=== PATIENT | female | born 1945 | race American Indian/Alaskan Native ===

== ENCOUNTER 2017-12-06 13:12 | Outpatient (CLI) | payer MEDICAID, MEDICARE ==
--- NOTE | 2017-12-06 14:23 | Mammography Report ---
Bilateral mammogram: No previous studies of the liver. CAD is utilized. Findings: Predominance of adipose tissue bilaterally. Focal architectural distortion outer mid left breast. No microcalcification. No distinct mass. Benign axillary nodes. Impression: Focal architectural distortion left breast. Comparison with previous studies is recommended. If previous studies are not available tomosynethesis or spot mag and if necessary sonographic examination advised. BI-RADS CATEGORY: 0 = Needs additional imaging evaluation ACR BI-RADS MAMMOGRAPHIC CODES: 0 = Needs additional imaging evaluation; 1 = Negative; 2 = Benign; 3 = Probably benign; 4 = Suspicious; 5 = Malignant; 6 = Known biopsy-proven malignancy COMMENT: 1. Dense breast tissue, i.e., adenosis, fibrocystic changes, etc., may obscure an underlying neoplasm. 2. Approximately 10% of cancers are not detected with mammography. 3. A negative mammography report should not delay biopsy if a clinically suspicious mass is present. COMMENT: Patient follow-up letters are generated in [employer].
--- NOTE | 2017-12-06 14:25 | Mammography Report ---
BONE DENSITY STUDY: DEFINITIONS: BMD = Bone Mineral Density T-score = BMD related to mean peak bone mass of young adult (mean expressed in Standard Deviation) Z-score = Age matched BMD expressed in SD World Health Organization (WHO) Diagnostic Criteria Normal T-score > -1 SD Osteopenia T-score between -1 and -2.4 SD Osteoporosis T-score -2.5 SD or below FINDINGS: The weighted average BMD of lumbar spine L1-L4 is 1.135 with a T-score of 0.8. The weighted average BMD of hip is 0.823 with a T-score of -1.0. IMPRESSION: The patient's T-score is diagnostic for osteopenia and average relative risk for fracture. NOTE: BMD is not the only risk factor for fracture; also consider factors such as the patient's age, risk of falling, previous osteoporotic fracture, family history of osteoporotic fractures, current smoker, and low body weight. Rich's triangle is a region of interest in femur, predominantly of trabecular bone. It is not a true anatomic site, and ISCD does not recommend its use clinically.
--- NOTE | 2017-12-06 15:26 | XRay Report ---
Lumbar spine 3 views: History: Lumbago with sciatica. Findings: Rotoscoliosis of lumbar spine with convexity to left. Normal height of vertebral bodies. Decrease in height of intervertebral disc spaces with sclerotic articular surfaces with peripheral osteophytes suggesting degenerative changes. No fracture. No soft tissue calcification. Impression: Moderate to severe degenerative changes lumbar spine.
== END 2017-12-06 13:13 | disposition home or self-care (01) ==
LOC: MAMMO 13:12
PROVIDERS: ATTEND Internal Medicine
DX: Z12.31 Encounter for screening mammogram for malignant neoplasm of breast (principal); M85.88 Other specified disorders of bone density and structure, other site; M41.86 Other forms of scoliosis, lumbar region; M47.896 Other spondylosis, lumbar region
CPT/HCPCS: 72110; 77067; 77080

== ENCOUNTER 2017-12-19 12:45 | Outpatient (CLI) | payer MEDICARE ==
--- NOTE | 2017-12-19 13:46 | Mammography Report ---
LEFT DIGITAL DIAGNOSTIC MAMMOGRAM : 12/19/17 12:45:00 CLINICAL: Recalled for focal architectural distortion. COMPARISON:12/06/17 screening FINDINGS: Additional left mammographic views were performed and are negative. IMPRESSION: Negative Mammogram. BI-RADS CATEGORY: 1 -- Negative RECOMMENDATION: Routine mammographic screening in one year. ACR BI-RADS MAMMOGRAPHIC CODES: 0 = Needs additional imaging evaluation; 1 = Negative; 2 = Benign; 3 = Probably benign; 4 = Suspicious; 5 = Malignant; 6 = Known biopsy-proven malignancy COMMENT: 1. Dense breast tissue, i.e., adenosis, fibrocystic changes, etc., may obscure an underlying neoplasm. 2. Approximately 10% of cancers are not detected with mammography. 3. A negative mammography report should not delay biopsy if a clinically suspicious mass is present. COMMENT: Patient follow-up letters are generated via our [employer] application.
== END 2017-12-19 12:46 | disposition home or self-care (01) ==
LOC: MAMMO 12:45
PROVIDERS: ATTEND Internal Medicine
DX: R92.8 Other abnormal and inconclusive findings on diagnostic imaging of breast (principal)

== ENCOUNTER 2018-12-27 10:59 | Outpatient (CLI) | payer MEDICARE ==
--- NOTE | 2018-12-27 11:26 | Mammography Report ---
BILATERAL MAMMOGRAM: FINDINGS: The breast tissue is heterogeneously dense, which could obscure detection of small masses (approximately 50%-75% glandular). No mass, distortion, suspicious calcification, or skin change is seen. There are no changes when compared to prior exams in 2018. CAD was utilized. IMPRESSION: Negative mammogram. There is no mammographic evidence of malignancy. RECOMMENDATION: Follow-up per ACS guidelines. BI-RADS CATEGORY: 1 = Negative ACR BI-RADS MAMMOGRAPHIC CODES: 0 = Needs additional imaging evaluation; 1 = Negative; 2 = Benign; 3 = Probably benign; 4 = Suspicious; 5 = Malignant; 6 = Known biopsy-proven malignancy COMMENT: 1. Dense breast tissue, i.e., adenosis, fibrocystic changes, etc., may obscure an underlying neoplasm. 2. Approximately 10% of cancers are not detected with mammography. 3. A negative mammography report should not delay biopsy if a clinically suspicious mass is present. COMMENT: Patient follow-up letters are generated in [employer].
== END 2018-12-27 11:00 | disposition home or self-care (01) ==
LOC: MAMMO 10:59
PROVIDERS: ATTEND Internal Medicine
DX: Z12.31 Encounter for screening mammogram for malignant neoplasm of breast (principal); I10 Essential (primary) hypertension; Z90.710 Acquired absence of both cervix and uterus
CPT/HCPCS: 77067

== ENCOUNTER 2018-12-30 12:47 | Emergency (ER) | payer MEDICARE ==
--- NOTE | 2018-12-30 12:59 | Emergency Department Report ---
Blank Doc - Documentation Documentation: 73 y o left heel pain x 1 week PMH of HTM on medications amlodipine and triamtene Just took her BP medicine in triage hasnt taken it in 3 days [facility] jessicaal
[2018-12-30 13:03] VITALS: BP 191/95
--- NOTE | 2018-12-30 13:58 | XRay Report ---
PROCEDURE: XR FOOT 3+V LT TECHNIQUE: AP, oblique and lateral views of the left foot were performed. HISTORY: pain COMPARISONS: None. FINDINGS: No fracture. No dislocation. Normal mineralization. No soft tissue swelling. Mild degenerative changes of the first MTP joint are seen. 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 This document is electronically signed by Kiarra Sandoval., December 30 2018 02:56:04 PM ET
--- NOTE | 2018-12-30 14:05 | Emergency Department Report ---
ED Lower Extremity HPI - General Chief Complaint: Extremity Injury, Lower Stated Complaint: HEEL AND ANKLE PAIN Time Seen by Provider: 12/30/18 12:57 Source: patient Mode of arrival: Ambulatory Limitations: No Limitations - History of Present Illness Initial Comments: This is a 73-year-old female nontoxic, well nourished in appearance, no acute signs of distress presents to the ED with c/o of posterior left foot pain 1 day. Patient denies any trauma. Patient denies any numbness, tingling, fever, chills, nausea, vomiting, chest pain, shortness of breath, headache, stiff neck. Patient denies any joint swelling or joint redness. Patient denies decreased range of motion. Patient stated has decreased gait due to pain. Patient denies any allergies or significant past medical history. MD Complaint: foot injury -: days(s) (1) Injury: Foot: Left Severity: mild Severity scale (0 -10): 8 Improves With: immobilization Worsens With: weight bearing, movement, palpation Associated Symptoms: unable to bear weight, able to partially bear weight. de nies: snap/pop sensation, swelling, numbness, tingling, ambulatory - Related Data Previous Rx's Medication Instructions Recorded Last Taken Type Acetaminophen/Codeine [Tylenol #3] 1 tab PO TID PRN #9 tab 03/13/15 Unknown Rx methOCARBAMOL [Robaxin TAB] 500 mg PO BID #14 tab 03/13/15 Unknown Rx Acetaminophen/Codeine [Tylenol 1 tab PO Q6H PRN #12 tab 12/30/18 Unknown Rx /Codeine # 3 tab] Prednisone [predniSONE 10 mg 10 mg PO .TAPER #1 tab.ds.pk 12/30/18 Unknown Rx (6-Day Pack, 21 Tabs)] Allergies Allergy/AdvReac Type Severity Reaction Status Date / Time No Known Allergies Allergy Verified 12/30/18 12:48 ED Review of Systems ROS: Stated complaint: HEEL AND ANKLE PAIN Other details as noted in HPI Constitutional: denies: chills, fever Eyes: denies: eye pain, eye discharge, vision change ENT: denies: ear pain, throat pain Respiratory: denies: cough, shortness of breath, wheezing Cardiovascular: denies: chest pain, palpitations Endocrine: no symptoms reported Gastrointestinal: denies: abdominal pain, nausea, diarrhea Genitourinary: denies: urgency, dysuria, discharge Musculoskeletal: arthralgia. denies: back pain, joint swelling Skin: denies: rash, lesions Neurological: denies: headache, weakness, paresthesias Psychiatric: denies: anxiety, depression Hematological/Lymphatic: denies: easy bleeding, easy bruising ED Past Medical Hx - Past Medical History Hx Hypertension: Yes - Surgical History Additional Surgical History: c-sect, hysterectomy - Social History Smoking Status: Former Smoker Substance Use Type: Prescribed - Medications Home Medications: Home Medications Medication Instructions Recorded Confirmed Last Taken Type Acetaminophen/Codeine [Tylenol #3] 1 tab PO TID PRN #9 tab 03/13/15 Unknown Rx methOCARBAMOL [Robaxin TAB] 500 mg PO BID #14 tab 03/13/15 Unknown Rx Acetaminophen/Codeine [Tylenol 1 tab PO Q6H PRN #12 tab 12/30/18 Unknown Rx /Codeine # 3 tab] Prednisone [predniSONE 10 mg 10 mg PO .TAPER #1 tab.ds.pk 12/30/18 Unknown Rx (6-Day Pack, 21 Tabs)] ED Physical Exam - General Limitations: No Limitations General appearance: alert, in no apparent distress - Head Head exam: Present: atraumatic, normocephalic - Neck Neck exam: Present: normal inspection, full ROM. Absent: tenderness, meningismus, lymphadenopathy - Extremities Exam Extremities exam: Present: normal inspection, full ROM, tenderness, normal capillary refill. Absent: joint swelling, calf tenderness - Expanded Lower Extremity Exam Left Hip exam: Present: normal inspection, full ROM. Absent: tenderness, swelling Upper Leg exam: Present: normal inspection, full ROM. Absent: tenderness, swelling Knee exam: Present: normal inspection, full ROM. Absent: tenderness, swelling Lower Leg exam: Present: normal inspection, full ROM. Absent: tenderness, swelling Ankle exam: Present: normal inspection, full ROM. Absent: tenderness, swelling Foot/Toe exam: Present: normal inspection, full ROM, tenderness. Absent: swelling, abrasion, laceration, ecchymosis, deformity, crepidus, dislocation, erythema, amputation, puncture wound, foreign body, calcaneal tenderness, tenderness at base of 5th metatarsal, nail avulsion, subungual hematoma Neuro vascular tendon exam: Present: no vascular compromise Gait: Positive: observed and limited by pain 1 - pain here - Back Exam Back exam: Present: normal inspection, full ROM - Neurological Exam Neurological exam: Present: alert, oriented X3, normal gait - Psychiatric Psychiatric exam: Present: normal affect, normal mood - Skin Skin exam: Present: warm, dry, intact, normal color. Absent: rash ED Course Vital Signs 12/30/18 12:56 Temperature 97.9 F Pulse Rate 86 Respiratory 18 Rate Blood Pressure 191/95 O2 Sat by Pulse 99 Oximetry - Reevaluation(s) Reevaluation #1: 12/30/18 14:04 Patient is speaking in full sentences with no signs of distress noted. ED Lower Extremity MDM - Medical Decision Making This is a 73-year-old female that presents with left plantar fasciitis. Patient is stable and was examined by me. I referred patient to an orthopedic doctor for further evaluation for possible MRI. X-ray has been obtained and dictated by the radiologist. Patient is notified of the x-ray report with noted by the patient. Patient does have normal gait with no tenderness and no joint swelling. No ecchymosis. no joint redness or swelling. Not warm to touch. No signs of cellulites present. Patient received a ortho shoe for pain comfort and mobility. Patient was instructed to RICE therapy. Patient is discharged with Tylenol with Codeine and prednisone. At time of discharge, the patient does not seem toxic or ill in appearance. No acute signs of distress noted. Patient agrees to discharge treatment plan of care. No further questions noted by the patient. Critical care attestation.: If time is entered above; I have spent that time in minutes in the direct care of this critically ill patient, excluding procedure time. ED Disposition Clinical Impression: Plantar fasciitis of left foot Disposition: DC- TO HOME OR SELFCARE Is pt being admited?: No Does the pt Need Aspirin: No Condition: Stable Instructions: Plantar Fasciitis (ED), RICE Therapy (ED), Acetaminophen/Codeine (By mouth) Additional Instructions: Follow-up with a orthopedic doctor in 3-5 days or if symptoms worsen and continue return to emergency room as soon as possible. Do not operate any machinery while taking Tylenol with codeine as this may cause drowsiness. Prescriptions: Prednisone [predniSONE 10 mg (6-Day Pack, 21 Tabs)] 10 mg PO .TAPER #1 tab.ds.pk Acetaminophen/Codeine [Tylenol /Codeine # 3 tab] 1 tab PO Q6H PRN #12 tab PRN Reason: Pain , Severe (7-10) Referrals: KI TURCIOS MD [Primary Care Provider] - 3-5 Days PRIMARY CAREMD [Referring] - 3-5 Days ERIN GUTHRIE MD [Staff Physician] - 3-5 Days [facility] [Outside] - 3-5 Days
== END 2018-12-30 14:21 | disposition home or self-care (01) ==
LOC: ED 12:47
DX: M72.2 Plantar fascial fibromatosis (principal); I10 Essential (primary) hypertension; Z90.710 Acquired absence of both cervix and uterus; Z87.891 Personal history of nicotine dependence
CPT/HCPCS: 99283

== ENCOUNTER 2019-01-22 10:05 | Emergency (ER) | payer MEDICARE ==
[2019-01-22] MEDS ORDERED: NORVASC PO ONE (12:02)
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
[2019-01-22 14:22] VITALS: BP 168/87
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
== END 2019-01-22 15:50 | disposition home or self-care (01) ==
LOC: ED 10:05
DX: S16.1XXA Strain of muscle, fascia and tendon at neck level, initial encounter (principal); S09.90XA Unspecified injury of head, initial encounter; I10 Essential (primary) hypertension; Z90.710 Acquired absence of both cervix and uterus; Z98.890 Other specified postprocedural states; V49.49XA Driver injured in collision with other motor vehicles in traffic accident, initial encounter; Y93.89 Activity, other specified; Y92.410 Unspecified street and highway as the place of occurrence of the external cause; Y99.8 Other external cause status
CPT/HCPCS: 70450; 72125

== ENCOUNTER 2020-04-28 13:09 | Day surgery (SDC) | payer MEDICARE ==
[2020-04-27 10:38] LABS: Hematocrit 38.8 % (30.3-42.9); Hemoglobin 13.1 gm/dl (10.1-14.3); Mean Corpuscular HGB Conc 34 % (30-34); Mean Corpuscular Volume 98 fl (79-97); Platelet Count 181 K/mm3 (140-440); Red Blood Count 3.96 M/mm3 (3.65-5.03); Red Cell Distribution Width 13.9 % (13.2-15.2)
[2020-04-27 10:53] LABS: Blood Urea Nitrogen 14 mg/dL (7-17); Calcium 9.4 mg/dL (8.4-10.2); Hemolysis Index 1
[2020-04-27 10:54] LABS: BUN/Creatinine Ratio 20
[~2020-04-28 13:09] MED LIST: ACETAMINOPHEN 500 MG TAB PO SCH; LACTATED RINGERS 1,000 ML IV SCH; MIDAZOLAM 2 MG/2 ML INJ IV NR; ceFAZolin/Water 2 GM/20 ML 2 GM/20 ML SYRINGE IV NR
--- NOTE | 2020-04-28 13:24 | Anesthesia Consultation ---
Anesthesia Consult and Med Hx Date of service: 04/28/20 - Airway Anesthetic Teeth Evaluation: Edentulous ROM Head & Neck: Adequate Mental/Hyoid Distance: Adequate Mallampati Class: Class I Intubation Access Assessment: Good - Pulmonary Exam CTA: Yes - Cardiac Exam Cardiac Exam: RRR - Pre-Operative Health Status ASA Pre-Surgery Classification: ASA2 Proposed Anesthetic Plan: General Nerve Block: supraclavicular - Pulmonary Hx Smoking: Yes (quit 5 yrs) Hx Respiratory Symptoms: No Hx Sleep Apnea: No (JESSICA PRE SCREEN LOW RISK) - Cardiovascular System Hx Hypertension: Yes (took amlodipine and valsartan this morning) Hx Heart Attack/AMI: No Hx Percutaneous Transluminal Coronary Angioplasty (PTCA): No Hx Cardia Arrhythmia: No - Central Nervous System CVA: No - Gastrointestinal Hx Gastroesophageal Reflux Disease: No - Endocrine Hx Renal Disease: No Hx Liver Disease: No Hx Insulin Dependent Diabetes: No Hx Non-Insulin Dependent Diabetes: No Hx Thyroid Disease: No - Other Systems Hx Obesity: Yes (BMI 31) - Additional Comments Anesthesia Medical History Comments: No hx anesthetic complications.
--- NOTE | 2020-04-28 13:25 | Anesthesia Day of Surgery ---
Anesthesia Day of Surgery - Day of Surgery Patient Examined: Yes Patient H&P Reviewed: Yes Patient is NPO: Yes
[2020-04-28] MEDS ORDERED: BUPIVACAINE-EPINEPHRINE/PF 0.25%-1:200,000 (30 ML) VIAL INFILTRATI ONE ×2 (13:27→16:32)
[2020-04-28] MEDS ORDERED: dexAMETHasone 4 MG/ML VIAL ONE (13:27)
[2020-04-28] MEDS ORDERED: LIDOCAINE (1%) 10 MG/1 ML VIAL 20 ML MDV ONE (13:27)
[2020-04-28] MEDS ORDERED: LIDOCAINE MPF (2%) 20 MG/1 ML VIAL 5 ML ONE (13:32)
[2020-04-28] MEDS ORDERED: propofoL 200 MG/20 ML VIAL IV ONE (13:32)
[2020-04-28] MEDS ORDERED: HYDROmorphone 1 MG/1 ML INJ ONE (13:32)
[2020-04-28] MEDS ORDERED: ONDANSETRON 4 MG/2 ML INJ ONE (15:54)
--- NOTE | 2020-04-28 16:28 | Procedure Note ---
Date of procedure: 04/28/20 Pre-op diagnosis: Displaced left distal radius fracture Post-op diagnosis: same Procedure: Open reduction internal fixation [left] distal radius Procedure The patient was brought to the OR after being given regional anesthesia and preoperative holding, next she was placed on the OR table in supine position the patient's [left] upper extremity was prepped and draped in the usual sterile manner. A timeout procedure was done to identify the patient and the correct operative site. The arm was exsanguinated followed by inflation of the pneumatic tourniquet to 250 mmHg. A volar incision was made along the distal radius as is taken down sharply through skin and subcutaneous the flexor carpi radialis tendon was seen next the incision was carried deep to this structure we encountered the quadratus tendon this was then debrided from the distal radius using a periosteal elevator the fracture site was seen she was noted to have a small comminuted fragment along the volar surface after the gentle manipulation the fracture fragments were reduced into a more anatomic position next the [left] distal radius locking plate was applied via C-arm care was taken to insert both locking and nonlocking screws of various lengths AP and lateral views were obtained showing good reduction at the fracture and in placement of our hardware the wrist was taken through a range of motion and was found to be stable next the wound was copiously irrigated and was closed in a standard routine fashion. Dressings were applied as well as a well-padded volar splint the patient tolerated the procedure there were no complications and she was sent to postanesthesia recovery in a stable condition Anesthesia: regional Surgeon: ERIN GUTHRIE Estimated blood loss: minimal Pathology: none Condition: stable Disposition: PACU
--- NOTE | 2020-04-28 16:31 | XRay Report ---
XR wrist 2V LT INDICATION / CLINICAL INFORMATION: LT WRIST FX. COMPARISON: None available. FINDINGS: ORIF of distal radial fracture Fluoroscopy time: 10 seconds. Fluoroscopic images: 2. IMPRESSION: 1. ORIF of distal radial fracture Signer Name: Kody Barrett MD FACMaryam Signed: 04/28/2020 4:26 PM Workstation Name: [id number]
[2020-04-28 17:39] VITALS: BP 139/79
--- NOTE | 2020-04-28 18:30 | Post Anesthesia Evaluation ---
- Post Anesthesia Evaluation Patient Participated: Yes Airway Patent: Yes Stable Respiratory Function: Yes Nausea/Vomiting: No Temp > 96.8F: Yes Pain Manageable: Yes Adequeate Hydration: Yes Anesthesia Complications: No Block Receding Appropriately: Yes (complained of pain on arrival to PACU. Block supplemented to cover affected dermatome. Pain well controlled thereafter.)
== END 2020-04-28 18:25 | disposition home or self-care (01) ==
LOC: OR 13:09
PROVIDERS: ATTEND Orthopaedic Surgery
DX: S52.572A Other intraarticular fracture of lower end of left radius, initial encounter for closed fracture (principal); E78.00 Pure hypercholesterolemia, unspecified; I10 Essential (primary) hypertension; E66.9 Obesity, unspecified; Z79.899 Other long term (current) drug therapy; Z98.49 Cataract extraction status, unspecified eye; Z90.710 Acquired absence of both cervix and uterus; Z87.891 Personal history of nicotine dependence; Z20.828 Contact with and (suspected) exposure to other viral communicable diseases; W01.0XXA Fall on same level from slipping, tripping and stumbling without subsequent striking against object, initial encounter; Y93.89 Activity, other specified; Y92.89 Other specified places as the place of occurrence of the external cause; Y99.8 Other external cause status
CPT/HCPCS: 25609; 36415; 64450; 73100; 80048; 85027; C1713; J0690; J1100; J1170; J2250; J2405; J2704; J7120; U0003

== ENCOUNTER 2020-06-19 14:16 | Outpatient (CLI) | payer MEDICARE ==
--- NOTE | 2020-06-19 16:09 | XRay Report ---
Left elbow 3 views INDICATION: Left elbow pain. IMPRESSION: No significant elbow effusion is identified however there is significant edema involving the forearm. There is slight osteopenia of the elbow with mild degenerative changes. No displaced fra cture is identified. Signer Name: Humberto Funes MD Signed: 06/19/2020 4:04 PM Workstation Name: [id number]
== END 2020-06-19 14:17 | disposition home or self-care (01) ==
LOC: XRAY 14:16
PROVIDERS: ATTEND Orthopaedic Surgery
DX: S52.592A Other fractures of lower end of left radius, initial encounter for closed fracture (principal); R60.0 Localized edema; M19.022 Primary osteoarthritis, left elbow; M85.88 Other specified disorders of bone density and structure, other site; X58.XXXA Exposure to other specified factors, initial encounter; Y93.89 Activity, other specified; Y92.89 Other specified places as the place of occurrence of the external cause; Y99.8 Other external cause status

== ENCOUNTER 2020-08-25 12:10 | Outpatient (CLI) | payer MEDICARE ==
--- NOTE | 2020-08-25 14:44 | XRay Report ---
LEFT WRIST 4 VIEW(S) INDICATION / CLINICAL INFORMATION: LEFT WRIST PAIN COMPARISON: 04/28/2020 FINDINGS: BONES / JOINT(S): Chronic appearing deformity at the left distal radius with chronic, displaced ulnar styloid fracture. Postoperative change of distal radius fracture fixation. No acute fracture or disl ocation. Moderate degenerative change at the first CMC joint. SOFT TISSUES: Mild wrist edema. ADDITIONAL FINDINGS: None. Signer Name: Ady Zimmerman MD Signed: 08/25/2020 2:40 PM Workstation Name: [id number]
== END 2020-08-25 12:11 | disposition home or self-care (01) ==
LOC: XRAY 12:10
PROVIDERS: ATTEND Orthopaedic Surgery
DX: S52.592A Other fractures of lower end of left radius, initial encounter for closed fracture (principal); M19.032 Primary osteoarthritis, left wrist; M79.89 Other specified soft tissue disorders; X58.XXXA Exposure to other specified factors, initial encounter; Y93.89 Activity, other specified; Y92.89 Other specified places as the place of occurrence of the external cause; Y99.8 Other external cause status

== ENCOUNTER 2020-11-15 12:04 | Emergency (ER) | payer MEDICARE ==
[2020-11-15 12:09] VITALS: BP 150/90
--- NOTE | 2020-11-15 13:11 | Emergency Department Report ---
ED Female HPI - General Chief complaint: Urogenital-Female Stated complaint: POSS UTI Time Seen by Provider: 11/15/20 13:07 Source: patient Mode of arrival: Ambulatory Limitations: No Limitations - History of Present Illness Initial comments: 75-year-old female with a past medical history of hypertension presents to the ER today with complaints of UTI symptoms. She states that about a week and a half ago symptoms started. She reports urinary frequency, hesitancy, dysuria and mild urinary odor. She states that she has low back pain off and on, but this has not gotten any worse since her UTI symptoms develop. She denies any abdominal pain, nausea, vomiting, fever, chills, or any abnormal vaginal symptoms. She is status post hysterectomy. She does not recall having a UTI in the past. MD Complaint: dysuria -: week(s) (1.5 weeks ) - Related Data Home Medications Medication Instructions Recorded Confirmed Last Taken Valsartan [Diovan] 320 mg PO QDAY 04/22/20 04/28/20 04/27/20 08:00 amLODIPine [Norvasc] 5 mg PO DAILY 04/22/20 04/28/20 04/28/20 11:00 Previous Rx's Medication Instructions Recorded Last Taken Type Phenazopyridine [Pyridium] 200 mg PO TID PRN #15 tab 11/15/20 Unknown Rx cephALEXin [Keflex] 500 mg PO Q8HR #30 cap 11/15/20 Unknown Rx Allergies Allergy/AdvReac Type Severity Reaction Status Date / Time No Known Allergies Allergy Verified 11/15/20 12:09 ED Review of Systems ROS: Stated complaint: POSS UTI Other details as noted in HPI Comment: All other systems reviewed and negative Constitutional: denies: chills, diaphoresis, fever, malaise, weakness Eyes: denies: eye pain, eye discharge, vision change ENT: denies: ear pain, throat pain Respiratory: denies: cough, shortness of breath, wheezing Cardiovascular: denies: chest pain, palpitations Endocrine: no symptoms reported Gastrointestinal: denies: abdominal pain, nausea, vomiting, diarrhea, constipation, hematemesis, hematochezia Genitourinary: urgency, dysuria, frequency. denies: hematuria, discharge Musculoskeletal: denies: joint swelling, arthralgia Skin: denies: rash, lesions Neurological: denies: headache, weakness, numbness, paresthesias, abnormal gait, vertigo Psychiatric: denies: anxiety, depression, auditory hallucinations, visual hallucinations, homicidal thoughts, suicidal thoughts Hematological/Lymphatic: denies: easy bleeding, easy bruising ED Past Medical Hx - Past Medical History Hx Hypertension: Yes (took amlodipine and valsartan this morning) Hx Heart Attack/AMI: No Hx Liver Disease: No Hx Renal Disease: No Hx HIV: No - Surgical History Additional Surgical History: c-sect, hysterectomy - Social History Smoking Status: Never Smoker Substance Use Type: None - Medications Home Medications: Home Medications Medication Instructions Recorded Confirmed Last Taken Type Valsartan [Diovan] 320 mg PO QDAY 04/22/20 04/28/20 04/27/20 08:00 History amLODIPine [Norvasc] 5 mg PO DAILY 04/22/20 04/28/20 04/28/20 11:00 History Phenazopyridine [Pyridium] 200 mg PO TID PRN #15 tab 11/15/20 Unknown Rx cephALEXin [Keflex] 500 mg PO Q8HR #30 cap 11/15/20 Unknown Rx ED Physical Exam - General Limitations: No Limitations General appearance: alert, in no apparent distress - Head Head exam: Present: atraumatic, normocephalic, normal inspection - Eye Eye exam: Present: normal appearance, PERRL, EOMI Pupils: Present: normal accommodation - Neck Neck exam: Present: normal inspection, full ROM - Respiratory Respiratory exam: Present: normal lung sounds bilaterally. Absent: respiratory distress - Cardiovascular Cardiovascular Exam: Present: regular rate, normal rhythm, normal heart sounds - GI/Abdominal GI/Abdominal exam: Absent: soft, tenderness, guarding, rebound - Back Exam Back exam: Present: normal inspection, full ROM. Absent: CVA tenderness (R), CVA tenderness (L) - Neurological Exam Neurological exam: Present: alert, oriented X3, CN II-XII intact, normal gait - Psychiatric Psychiatric exam: Present: normal affect, normal mood - Skin Skin exam: Present: intact ED Course Vital Signs 11/15/20 12:06 Temperature 98.3 F Pulse Rate 93 H Respiratory 20 Rate Blood Pressure 150/90 O2 Sat by Pulse 96 Oximetry ED Medical Decision Making - Medical Decision Making Urinalysis reviewed, she does not have any nitrites or leukocytes, only 1 wbc and she has 1+ bacteria. Urine culture is pending. Patient is symptomatic and therefore we will still treat with antibiotic. She overall is well-appearing, she is not toxic or ill appearing. She is well hydrated. She has no CVA ttp or abdominal ttp. She is afebrile and remaining VS stable. No further w/u indicated at this time. Discussed lab results, and treatment plan with patient. Informed her to f/u with urologist if not better after antibiotics but return to ED if worse. Patient expressed understanding of instructions but agree with plan. Critical care attestation.: If time is entered above; I have spent that time in minutes in the direct care of this critically ill patient, excluding procedure time. ED Disposition Clinical Impression: Dysuria Disposition: DC-01 TO HOME OR SELFCARE Is pt being admited?: No Does the pt Need Aspirin: No Condition: Stable Instructions: Dysuria Additional Instructions: Take the keflex as prescribed. Take the pyridium as prescribed. Follow up with Urologist if your symptoms does not improve after meds. Return to ED if symptoms worsens or changes in any way. Prescriptions: cephALEXin [Keflex] 500 mg PO Q8HR #30 cap Phenazopyridine [Pyridium] 200 mg PO TID PRN #15 tab PRN Reason: dysuria Referrals: SUNNI GODFREY MD [Staff Physician] - 3-5 Days Time of Disposition: 14:07
[2020-11-15 13:13] LABS: Bacteria,Urine 1+ /HPF (Negative); Bilirubin,Urine NEG (Negative); Blood,Urine NEG (Negative); Color,Urine Yellow (Yellow); Mucus,Urine FEW /HPF; Protein,Urine <15 mg/dL mg/dL (Negative); Urobilinogen,Urine < 2.0 mg/dL (<2.0)
== END 2020-11-15 14:29 | disposition home or self-care (01) ==
LOC: ED 12:04
DX: R30.0 Dysuria (principal); I10 Essential (primary) hypertension; Z90.710 Acquired absence of both cervix and uterus; Z98.890 Other specified postprocedural states; Z79.899 Other long term (current) drug therapy
CPT/HCPCS: 81001; 87086

== ENCOUNTER 2022-04-18 18:50 | Emergency (ER) | payer MEDICARE | END 2022-04-18 18:55 | disposition left against medical advice (07) | LOC: ED 18:50 | DX: R51.9 Headache, unspecified (principal); Z53.21 Procedure and treatment not carried out due to patient leaving prior to being seen by health care provider ==